=== PATIENT | male | born 1945 | race Two or more races ===

== ENCOUNTER 2018-03-22 21:25 | Inpatient (IN) | payer BC, OTHER ==
[~2018-03-22] VITALS: Ht 182.9 cm; Wt 107.5 kg
--- NOTE | 2018-03-22 21:40 | NUR ---
ADMISSION NOTES: ADMITTED A 72Y/O MALE, ADMITTED FROM [facility]. PT IS ON 5150 HOLD FOR DTS, DTO. PER HOLD PT IS CONFUSED, ANXIOUS AND RESTLESS. UPON FACE TO FACE ASSESSMENT. PATIENT APPEARS TO BE ALERT, ORIENTED X1, ANXIOUS, RESTLESS, CONFUSED, IRRITABLE, EASILY AGITATED. VS STABLE. NO COMPLAIN OF PAIN/DISCOMFORT. NO ACUTE DISTRESS NOTED. BELONGINGS INVENTORIED AND CHECKED FOR CONTRABAND. PATIENT IS UNDER THE PSYCHIATRIC CARE OF DR. BASURTO AND UNDER THE MEDICAL CARE OF DR. JEAN. BOTH DOCTORS ARE AWARE OF THE ADMISSION. BED LOCKED AND PLACED IN LOWEST POSITION. WILL CONTINUE TO MONITOR Q15MIN FOR SAFETY AND BEHAVIOR.
[2018-03-22] MEDS ORDERED: MAG HYDROX/AL HYDROX/SIMETH 30 ML UDC PO PRN (23:00)
[2018-03-22] MEDS ORDERED: MAGNESIUM HYDROXIDE 30 ML UDC PO PRN (23:00)
[2018-03-22] MEDS ORDERED: ACETAMINOPHEN 325 MG TABLET PO PRN (23:00)
[2018-03-22] MEDS ORDERED: QUET50TA PO (23:33)
[2018-03-22] MEDS ORDERED: LOSA1TAB39 PO (23:33)
[2018-03-22] MEDS ORDERED: DONE5TAB34 PO (23:33)
[2018-03-22] MEDS ORDERED: CYAN10006 PO (23:33)
[2018-03-22] MEDS ORDERED: METF-99 PO (23:33)
[2018-03-22] MEDS ORDERED: CHLO25TA13 PO (23:33)
[2018-03-22] MEDS ORDERED: DIVA250T PO (23:33)
[2018-03-23 07:10] LABS: BASOPHILS # (AUTO) 0.1 /CMM (0.0-0.2); BASOPHILS % (AUTO) 0.9 % (0.0-2.0); EOSINOPHILS % (AUTO) 1.9 % (0.0-6.0); HEMATOCRIT 41 % (39-51); HEMOGLOBIN 13.4 g/dL (13.5-17.5); LYMPHOCYTES # (AUTO) 2.1 /CMM (0.8-4.8); LYMPHOCYTES % (AUTO) 24.2 % (20.0-44.0); MEAN CORPUSCULAR HEMOGLOBIN 30 PG (26.0-33.0); MEAN CORPUSCULAR HGB CONC 33 g/dl (31.0-36.0); MEAN CORPUSCULAR VOLUME 90 fL (80-96); MONOCYTES # (AUTO) 0.5 /CMM (0.1-1.30); MONOCYTES % (AUTO) 5.4 % (2.0-12.0); NEUTROPHILS % (AUTO) 67.6 % (43.0-81.0); PLATELET COUNT (AUTO) 524 /CMM (150-450); RDW COEFFICIENT OF VARIATION 14.4 (11.5-15.0); RED BLOOD CELL COUNT(AUTO) 4.52 MIL/uL (4.5-6.0); WHITE BLOOD COUNT (AUTO) 8.8 K/uL (4.3-11.0)
[2018-03-23 07:23] LABS: CHOLESTEROL 137 mg/dL (<200); HDL CHOLESTEROL 27 mg/dL (40-60); LDL 100 mg/dL (0-99); TRIGLYCERIDES 91 mg/dL (30-150)
[2018-03-23 07:29] LABS: ALANINE AMINOTRANSFERASE 42 U/L (12-78); ALBUMIN 2.4 g/dL (3.4-5.0); ALKALINE PHOSPHATASE 74 U/L (46-116); ASPARTATE AMINOTRANSFERASE 30 U/L (15-37); BILIRUBIN,TOTAL 0.4 mg/dL (0.2-1.0); CALCIUM, SERUM 8.5 mg/dL (8.5-10.1); CARBON DIOXIDE 29 mmol/L (21-32); CHLORIDE 109 mmol/L (98-107); CREATININE 0.8 mg/dL (0.6-1.3); GLUCOSE 99 mg/dL (74-106); SODIUM SERUM 144 mmol/L (136-145); TOTAL PROTEIN, SERUM 6.6 g/dL (6.4-8.2); UREA NITROGEN, BLOOD 12 mg/dL (7-18)
[2018-03-23 08:00] VITALS: BP 128/68
[2018-03-23] MEDS: LORAZEPAM 0.5 MG TABLET PO PRN (09:07)
[2018-03-23] MEDS: METFORMIN XR 500 MG TAB.SR.24H PO SCH (11:18)
[2018-03-23] MEDS: DIVALPROEX SODIUM 250 MG TABLET.DR PO SCH ×2 (12:06→21:28)
--- NOTE | 2018-03-23 15:33 | NUR ---
SW called the pt's daughter and DPOA, Radha Prasad ([phone]), and conducted the assessment with her and discussed a discharge plan due to the pt's current state.
[2018-03-23 16:01] VITALS: BP 121/69
--- NOTE | 2018-03-23 16:06 | NUR ---
Initial Discharge Plan: Pt currently resides at [facility] located at [address] [place] [id number]; . Per pt's daughter and DPOA, Radha Prasad ([phone]), the pt will return there upon discharge. SW will work with the pt and the MD regarding appropriate discharge planning. SW will form a safe and proper discharge.
[2018-03-23 20:00] VITALS: BP 116/56
[2018-03-23] MEDS: ZOLPIDEM TARTRATE 5 MG TABLET PO PRN (21:28)
[2018-03-23] MEDS: QUETIAPINE FUMARATE 25 MG TABLET PO SCH (21:28)
[2018-03-23] MEDS: DONEPEZIL 5 MG TABLET PO SCH (21:28)
[2018-03-23] MEDS ORDERED: QUETIAPINE FUMARATE 25 MG TABLET PO SCH (22:00)
[2018-03-24 08:02] VITALS: BP 137/78
[2018-03-24] MEDS: DIVALPROEX SODIUM 250 MG TABLET.DR PO SCH ×2 (08:51→21:05)
[2018-03-24] MEDS: METFORMIN XR 500 MG TAB.SR.24H PO SCH (08:51)
[2018-03-24] MEDS: LOSARTAN/HCTZ 50-12.5MG/ 1 EA TABLET PO SCH (08:51)
[2018-03-24] MEDS: QUETIAPINE FUMARATE 25 MG TABLET PO SCH ×2 (08:51→22:06)
[2018-03-24] MEDS ORDERED: HYDROCHLOROTHIAZIDE 25 MG TABLET PO SCH (09:00)
[2018-03-24 16:00] VITALS: BP 116/56
[2018-03-24 20:00] VITALS: BP 118/57
[2018-03-24] MEDS: DONEPEZIL 5 MG TABLET PO SCH (22:06)
[2018-03-24] MEDS: ZOLPIDEM TARTRATE 5 MG TABLET PO PRN (22:06)
[2018-03-25 08:45] VITALS: BP 129/60
[2018-03-25] MEDS: DIVALPROEX SODIUM 250 MG TABLET.DR PO SCH ×2 (09:05→21:35)
[2018-03-25] MEDS: QUETIAPINE FUMARATE 25 MG TABLET PO SCH ×2 (09:05→21:36)
[2018-03-25] MEDS: METFORMIN XR 500 MG TAB.SR.24H PO SCH (09:06)
[2018-03-25] MEDS: LOSARTAN/HCTZ 50-12.5MG/ 1 EA TABLET PO SCH (09:06)
[2018-03-25 16:00] VITALS: BP 108/58
[2018-03-25] MEDS: LORAZEPAM 0.5 MG TABLET PO PRN (19:32)
[2018-03-25] MEDS: DONEPEZIL 5 MG TABLET PO SCH (21:35)
--- NOTE | 2018-03-26 01:00 | NUR ---
GPS RN NOTE, PATIENT HAS A COMPLAINT OF ITCHING ON PATIENTS SACRUM. EXPOSED AREA WITH THE HELP OF STAFF. PATIENT HAS REDNESS ON HIS SACRUM WITH EXCORIATION LEONARD VIABLE. PLACED WOUND CONSULT ORDER AND Z- LIZ ORDER. WILL INFORM ALL APPROPRIATE PARTIES. PICTURE TAKEN AND PLACED IN CHART. WILL CONTINUE TO MONITOR THIS PATIENT.
[2018-03-26] MEDS ORDERED: Z GUARD REMEDY 2 OZ OINT TP PRN (01:30)
--- NOTE | 2018-03-26 06:55 | NUR ---
GPS RN NOTES, PT. REFUSED VITAL SIGNS IN DURING SHIFT ,ENCOURAGED , EXPLIANED RISKS AND BENEFITS STILL REFUSED , WILL CONTINUE TO ENCOURAGED TO COMPLY WITH MD REGIMEN , NO ACUTE DISTRESS NOTED ,DENIES ANY DISCOMFORT AT THIS TIME.
[2018-03-26 08:00] VITALS: BP 114/54
[2018-03-26] MEDS: DIVALPROEX SODIUM 250 MG TABLET.DR PO SCH ×2 (08:16→20:59)
[2018-03-26] MEDS: QUETIAPINE FUMARATE 25 MG TABLET PO SCH ×3 (08:16→21:00)
[2018-03-26] MEDS: METFORMIN XR 500 MG TAB.SR.24H PO SCH (08:16)
[2018-03-26] MEDS: LOSARTAN/HCTZ 50-12.5MG/ 1 EA TABLET PO SCH (08:19)
[2018-03-26] MEDS: Z GUARD REMEDY 2 OZ OINT TP SCH (08:19)
--- NOTE | 2018-03-26 12:16 | NUR ---
GIUSEPPE sent a referral to [facility] for the pt with attention to Estela and to the fax number: .
--- NOTE | 2018-03-26 12:31 | NUR ---
Pt was denied admission to [facility]) per Esetla ([phone]).
[2018-03-26] MEDS: LORAZEPAM 0.5 MG TABLET PO PRN (14:17)
--- NOTE | 2018-03-26 14:34 | NUR ---
UR Note: GIUSEPPE called Lizzy ([phone] [phone]) from [facility] and discussed sending a clinical tomorrow morning because that is the last authorized day for the pt.
--- NOTE | 2018-03-26 14:36 | NUR ---
GIUSEPPE called Elle ([phone]) from [facility] and left a message asking if the pt can return upon discharge.
--- NOTE | 2018-03-26 14:42 | NUR ---
Elle ([phone]) from [facility] called the SW and stated that the pt is accepted back upon discharge depending on the behaviors and she stated that she wanted to visit the pt beforehand.
[2018-03-26 16:00] VITALS: BP 127/55
[2018-03-26 19:50] VITALS: BP 122/61
[2018-03-26] MEDS: DONEPEZIL 5 MG TABLET PO SCH (21:00)
[2018-03-26] MEDS: ZOLPIDEM TARTRATE 5 MG TABLET PO PRN (21:51)
[2018-03-27 08:00] VITALS: BP 116/57
[2018-03-27] MEDS: DIVALPROEX SODIUM 250 MG TABLET.DR PO SCH ×3 (08:25→16:23)
[2018-03-27] MEDS: QUETIAPINE FUMARATE 25 MG TABLET PO SCH ×3 (08:25→21:45)
[2018-03-27] MEDS: METFORMIN XR 500 MG TAB.SR.24H PO SCH (08:25)
[2018-03-27] MEDS: LOSARTAN/HCTZ 50-12.5MG/ 1 EA TABLET PO SCH (08:26)
[2018-03-27] MEDS: Z GUARD REMEDY 2 OZ OINT TP SCH (08:47)
--- NOTE | 2018-03-27 09:22 | NUR ---
UR Note: GIUSEPPE faxed a clinical to Lizzy ([phone] EXT [phone]) from [facility] to the fax number: [phone].
--- NOTE | 2018-03-27 10:59 | NUR ---
WOUND CARE CONSULT: PT AMBULATORY BUT HAS RASH BETWEEN BUTTOCKS. RECOMMENDATIONS MADE FOR SKIN CARE AND DISCUSSED WITH NURSING STAFF. WILL SEE PRN. MILNER IN AGREEMENT WITH PLAN OF CARE. CURRENT ABIGAIL SCORE IS 19. Addendum: 03/27/18 at 1100 by KIKI PENA WNDNU Amended: Links added.
[2018-03-27] MEDS: LORAZEPAM 0.5 MG TABLET PO PRN (15:26)
--- NOTE | 2018-03-27 15:26 | NUR ---
PS/RN PATIENT AGITATED, ANXIOUS, STRIKING OUT AT STAFF AND ATTEMPTING TO TOUCH OTHER PATIENTS. ADMINISTERED ATIVAN 1MG , WILL CONTINUE TO MONITOR.
[2018-03-27 16:00] VITALS: BP 119/66
[2018-03-27] MEDS: CLOTRIMAZOLE 1% 15 GM TUBE TP SCH (17:21)
[2018-03-27 20:10] VITALS: BP 120/66
[2018-03-27] MEDS: DONEPEZIL 5 MG TABLET PO SCH (21:45)
[2018-03-27] MEDS: ZOLPIDEM TARTRATE 5 MG TABLET PO PRN (22:26)
[2018-03-28 08:00] VITALS: BP 132/65
[2018-03-28] MEDS: QUETIAPINE FUMARATE 25 MG TABLET PO SCH ×3 (08:06→21:01)
[2018-03-28] MEDS: METFORMIN XR 500 MG TAB.SR.24H PO SCH (08:07)
[2018-03-28] MEDS: DIVALPROEX SODIUM 250 MG TABLET.DR PO SCH ×3 (08:07→16:29)
[2018-03-28] MEDS: LOSARTAN/HCTZ 50-12.5MG/ 1 EA TABLET PO SCH (08:08)
[2018-03-28] MEDS: CLOTRIMAZOLE 1% 15 GM TUBE TP SCH ×2 (08:10→16:35)
[2018-03-28] MEDS: Z GUARD REMEDY 2 OZ OINT TP SCH (08:10)
--- NOTE | 2018-03-28 08:37 | NUR ---
UR Note: Lizzy ([phone] EXT [phone]) from [facility] called the SW and left a voicemail stating that the pt was authorized for two more days: 03/28/18 and 03/29/18 with a review due on 03/29/18.
[2018-03-28 10:41] LABS: BASOPHILS % (AUTO) 0.6 % (0.0-2.0); HEMATOCRIT 39 % (39-51); HEMOGLOBIN 12.9 g/dL (13.5-17.5); LYMPHOCYTES # (AUTO) 1.7 /CMM (0.8-4.8); LYMPHOCYTES % (AUTO) 22.8 % (20.0-44.0); MEAN CORPUSCULAR HEMOGLOBIN 29 PG (26.0-33.0); MEAN CORPUSCULAR HGB CONC 33 g/dl (31.0-36.0); MEAN CORPUSCULAR VOLUME 89 fL (80-96); MONOCYTES # (AUTO) 0.6 /CMM (0.1-1.30); MONOCYTES % (AUTO) 8.2 % (2.0-12.0); NEUTROPHILS # (AUTO) 5.1 /CMM (1.8-8.9); NEUTROPHILS % (AUTO) 67.4 % (43.0-81.0); PLATELET COUNT (AUTO) 461 /CMM (150-450); RDW COEFFICIENT OF VARIATION 14.4 (11.5-15.0); RED BLOOD CELL COUNT(AUTO) 4.42 MIL/uL (4.5-6.0); WHITE BLOOD COUNT (AUTO) 7.6 K/uL (4.3-11.0)
[2018-03-28 11:02] LABS: CALCIUM, SERUM 8.5 mg/dL (8.5-10.1); CARBON DIOXIDE 31 mmol/L (21-32); CHLORIDE 105 mmol/L (98-107); CREATININE 0.7 mg/dL (0.6-1.3); GLUCOSE 158 mg/dL (74-106); POTASSIUM 3.7 mmol/L (3.5-5.1); SODIUM SERUM 142 mmol/L (136-145); UREA NITROGEN, BLOOD 14 mg/dL (7-18)
[2018-03-28 16:00] VITALS: BP 129/64
[2018-03-28 19:55] VITALS: BP 120/66
[2018-03-28] MEDS: DONEPEZIL 5 MG TABLET PO SCH (21:00)
[2018-03-28] MEDS: ZOLPIDEM TARTRATE 5 MG TABLET PO PRN (21:47)
[2018-03-29] MEDS: LORAZEPAM 0.5 MG TABLET PO PRN ×2 (04:33→15:35)
--- NOTE | 2018-03-29 04:33 | NUR ---
GPS-RN PATIENT IS VERY ANXIOUS, PACING IN AND OUT OF HIS ROOM. ADMINISTERED ATIVAN 1MG PO ORDERED. WILL CONTINUE TO MONITOR Q15MIN ROUNDS FOR SAFETY AND BEHAVIOR.
[2018-03-29 08:16] VITALS: BP 139/68
[2018-03-29] MEDS: DIVALPROEX SODIUM 250 MG TABLET.DR PO SCH ×3 (08:38→17:11)
[2018-03-29] MEDS: QUETIAPINE FUMARATE 25 MG TABLET PO SCH ×3 (08:39→21:46)
[2018-03-29] MEDS: METFORMIN XR 500 MG TAB.SR.24H PO SCH (08:39)
[2018-03-29] MEDS: Z GUARD REMEDY 2 OZ OINT TP SCH (10:50)
[2018-03-29] MEDS: LOSARTAN/HCTZ 50-12.5MG/ 1 EA TABLET PO SCH (10:51)
[2018-03-29] MEDS: CLOTRIMAZOLE 1% 15 GM TUBE TP SCH ×2 (10:55→17:12)
--- NOTE | 2018-03-29 13:30 | NUR ---
UR Note: GIUSEPPE faxed a clinical to Lizzy ([phone] ext [phone]) from [facility] to the fax number: [phone].
--- NOTE | 2018-03-29 13:30 | NUR ---
UR Note: Lizzy ([phone] EXT [phone]) from [facility] called the SW to remind her that a clinical is due today.
--- NOTE | 2018-03-29 14:10 | NUR ---
GIUSEPPE called Elle ([phone]) from [facility] and informed her that the pt is going to be discharged tomorrow. She stated that she will stop by the hospital later today to assess the pt.
--- NOTE | 2018-03-29 15:43 | NUR ---
GPS/RN-NOTES PATIENT IN THE DAY ROOM NOTED WITH PACING, WANDERING UNABLE TO SIT STILL.REDIRECTED AND ATIVAN 1MG P.O GIVEN PRN ORDER. WILL CONT. MONITORING FOR SAFETY AND BEHAVIOR.
--- NOTE | 2018-03-29 16:30 | NUR ---
GPS/RN-NOTES PATIENT IN THE DAY ROOM UP IN THE [place] CHAIR CALM AND COOPERATIVE. NO ACUTE DISTRESS NOTED.
[2018-03-29 20:00] VITALS: BP 111/58
[2018-03-29] MEDS: DONEPEZIL 5 MG TABLET PO SCH (21:46)
[2018-03-29] MEDS: ZOLPIDEM TARTRATE 5 MG TABLET PO PRN (22:38)
--- NOTE | 2018-03-30 06:22 | NUR ---
GPS/RN PATIENT IS AWAKE, CALM AND COMFORTABLE, MORNING CARE WAS DONE, ALL NEEDS ATTENDED AT THIS TIME. WILL CONTINUE TO MONITOR.
[2018-03-30 08:00] VITALS: BP 128/60
[2018-03-30] MEDS: METFORMIN XR 500 MG TAB.SR.24H PO SCH (08:11)
[2018-03-30] MEDS: QUETIAPINE FUMARATE 25 MG TABLET PO SCH (08:11)
[2018-03-30] MEDS: DIVALPROEX SODIUM 250 MG TABLET.DR PO SCH ×2 (08:11→12:17)
[2018-03-30] MEDS: Z GUARD REMEDY 2 OZ OINT TP SCH (08:12)
[2018-03-30] MEDS: CLOTRIMAZOLE 1% 15 GM TUBE TP SCH (08:12)
[2018-03-30 08:13] VITALS: BP 128/60
[2018-03-30] MEDS: LOSARTAN/HCTZ 50-12.5MG/ 1 EA TABLET PO SCH (08:13)
[2018-03-30] MEDS: LORAZEPAM 0.5 MG TABLET PO PRN (08:16)
--- NOTE | 2018-03-30 08:16 | NUR ---
RN NOTES ADMINISTERED ATIVAN 1 MG PO PRN FOR ANXIETY, IRRITABLE, UNDRESS SELF, HARD TO FOLLOW DIRECTION. V/S TAKEN BP-128/60, P-79, CONTINUED MONITORING.
--- NOTE | 2018-03-30 10:23 | NUR ---
GIUSEPPE called the pt's daughter and DPOA, Radha Prasad ([phone]), and left her a voicemail stating that the pt is being assessed and is ready for discharge.
--- NOTE | 2018-03-30 11:06 | NUR ---
GIUSEPPE called Elle ([phone]) from [facility] and left a message regarding a call back on the status of readmitting the pt to her facility.
--- NOTE | 2018-03-30 11:07 | NUR ---
Radha Prasad ([phone]), pt's daughter and DPOA, called the SW and stated that she spoke to the facility who wants the pt to be discharged as soon as possible because the auto club safety program coordinator assessed the pt and stated that he is not being treated how he should be.
--- NOTE | 2018-03-30 11:07 | NUR ---
UR Note: Lizzy ([phone] EXT [phone]) from [facility] called the SW and informed her that the pt is authorized up until the with a discharge hopefully set on the .
--- NOTE | 2018-03-30 12:06 | NUR ---
GIUSEPPE met with Radha Escotoon ([phone]), pt's daughter and DPOA, and she stated that she spoke with the facility and that they are accepting him back today. GIUSEPPE then contacted Dr. Donis and he stated that the pt can be discharged today.
--- NOTE | 2018-03-30 12:07 | NUR ---
GIUSEPPE called Elle ([phone]) from [facility] and informed her that the pt is being discharged to her facility today and received information regarding the aftercare plan.
--- NOTE | 2018-03-30 14:00 | NUR ---
DISCHARGE NOTES PATIENT DISCHARGE AT THIS TIME GOING ASSISTED. PATIENT STABLE, MD COMPLAINT, V/S STABLE. NO COMPLAINING OF PAIN AT THIS TIME. MED RECONCILIATION AND DISCHARGE ORDER REVIEWED AND EXPLAINED TO PATIENT AND DAUGHTER. DAUGHTER VERBALIZED UNDERSTANDING. PRESCRIPTION HANDED TO THE DAUGHTER. PATIENT REFUSED SIGN PAPERWORK, AND REFUSED PICTURE TO BED TAKEN. PATIENT WILL FOLLOW PRIMARY MD, AND PRIMARY PSYCHIATRIST. ESCORTED PATIENT TO THE [facility] FOR SAFETY. PATIENT FLEET SALES MANAGER BY DAUGHTER NAME PHONE # [phone].
--- NOTE | 2018-03-30 14:43 | NUR ---
Discharge Note: Pt was discharged to [facility] located at [address] [place] [address]; . Pts daughter and DPOA, Radha Prasad ([phone]), picked up the pt and transported him there. Pts daughter and DPOA approved of this placement. Upon discharge, the pt was disoriented and confused about his whereabouts due to his dementia. Pt will be under the care of his psychiatrist, Dr. Holloway, located at [address] [place] [address]; and his cad librarian, Dr. Pfeiffer, located at [address] [place] [address]; .
--- NOTE | 2018-03-30 14:51 | NUR ---
UR Note: GIUSEPPE faxed a discharge clinical to Lizzy ([phone] EXT [phone]) from [facility] to the fax number: [phone].
[2018-03-30] MEDS ORDERED: QUETIAPINE FUMARATE 25 MG TABLET PO SCH (17:00)
== END 2018-03-30 14:00 | DRG 885 ==
LOC: GPS 21:25
PROVIDERS: ADMIT Psychiatry & Neurology Psychiatry; ATTEND Internal Medicine
DX: F29 Unspecified psychosis not due to a substance or known physiological condition (principal); F01.51 Vascular dementia, unspecified severity, with behavioral disturbance; F03.91 Unspecified dementia, unspecified severity, with behavioral disturbance; E44.0 Moderate protein-calorie malnutrition; F32.9 Major depressive disorder, single episode, unspecified; E53.8 Deficiency of other specified B group vitamins; E11.9 Type 2 diabetes mellitus without complications; F41.9 Anxiety disorder, unspecified; D64.9 Anemia, unspecified; D47.3 Essential (hemorrhagic) thrombocythemia; I10 Essential (primary) hypertension; E66.9 Obesity, unspecified; Z68.32 Body mass index [BMI] 32.0-32.9, adult; E88.09 Other disorders of plasma-protein metabolism, not elsewhere classified
CPT/HCPCS: 36415; 80048-TC; 80053-TC; 80061-TC; 80164-TC; 85025-TC; 87081-TC